=== PATIENT | male | born 1985 | race Caucasian/White ===

== ENCOUNTER 2022-08-04 14:12 | Emergency (ER) | payer MEDICAID, SELFPAY ==
[2022-08-04] VITALS (10 sets, daily range): BP systolic 127–143; BP diastolic 49–89; PULSE 75–103; RESP 10–26; O2SAT 92–100; BMI 25.0
--- NOTE | ~2022-08-04 | XR_ITS ---
EXAMINATION: XR CHEST CLINICAL INFORMATION: Cough COMPARISON: None available. TECHNIQUE: Frontal view of the chest was obtained. FINDINGS: There may be a small area of atelectasis present at the left lung base. There is mild biconvex thoracolumbar scoliosis. Otherwise, no abnormality is noted involving the heart, lungs, mediastinum, bony thorax or soft tissues. XR/XR chest 1V IMPRESSION: Question of small area of infiltrate or atelectasis left lung base.
--- NOTE | 2022-08-04 14:31 | ED_ITS ---
HPI - Overdose General Chief Complaint: Overdose Stated Complaint: OD,NARCAN GIVEN W/GOOD RESULT PER EMS Time Seen by Provider: 08/04/22 14:24 Source: EMS Mode of arrival: EMS History of Present Illness HPI Narrative: This is a 37 years old male brought in by ambulance after heroin overdose, he received the multiple dozen Narcan and BVM ventilation pre-hospital, his right awake alert diaphoretic he denies any SI and HI MD complaint: accidental overdose Onset (ago): hour(s) (2) Context: Intentional Overdose: drug/ETOH problems Context: Accidental Overdose: wanted to get high Treatments Prior to Arrival: oxygen and narcan Related Data Allergies Allergy/AdvReac Type Severity Reaction Status Date / Time No Known Allergies Allergy Verified 08/04/22 14:25 Review of Systems Constitutional: Constitutional: Reports no additional constitutional complain ts Cardiovascular: Cardiovascular: Reports no additional cardiovascular complaints Musculoskeletal: Musculoskeletal: Reports no additional musculoskeletal complaints Psychiatric: Psychiatric: Denies depression PMFSH Past Medical History PMFSH Narrative: substance abuse Social History Social History Alcohol intake: current Smoked in Last 30 Days: No Substance Use Type: Heroin and IV Drugs Advance Directives: No Advance Directives Information Provided: No Physical Exam Vital Signs: Vital Signs: Last Vital Signs Pulse 75 08/04/22 15:42 Resp 16 08/04/22 15:42 BP 127/49 L 08/04/22 15:42 Pulse Ox 100 08/04/22 15:42 O2 Del Method High Flow Nasal C annula 08/04/22 15:42 O2 Flow Rate 35 08/04/22 15:42 Oxygen Flow Rate 2 08/04/22 14:16 BMI result Body Mass Index 25.0 Const: Other: awake and alert General: cooperative Nutritional Appearance: well nourished HEENT: Head: Yes normal to inspection General nose exam: Normal external nose present Face and sinus: Yes normal facial exam Mouth: Normal oral and palatal mucosa present Throat: Yes posterior oropharynx normal Neck: Neck: Yes normal visual inspection Thyroid: Thyroid normal Chest: Chest palpation & inspection: normal inspection of the chest Resp: Effort & Inspection: normal respiratory effort Cardio: Jugular venous distension: no JVD Rate: regular rate Rhythm: regular rhythm GI: Inspection: Yes normal to inspection Palpation (GI): Soft to palpation, not firm and nontender Auscultation: normal bowel sounds Skin: General skin exam: no rashes or lesions noted and elasticity normal Lesions: no lesions Rashes: no rashes Course Reevaluation(s) Reevaluation #1: pt was placed on supplement 02 ,will need to be observed for few hours,will be signed out to dr Ag,I will be off shift in 10 minutes Time: 15:51 Reevaluation #2: signed off to Dr Ag Time: 16:18 Medications Administered Discontinued Medications Generic Name Dose Route Start Last Admin Trade Name Sven PRN Reason Stop Dose Admin Sodium Chloride 1,000 mls @ 999 mls/hr 08/04/22 14:30 08/04/22 15:41 Ns IVCONT 08/04/22 15:30 Infused .Q1H1M ANDREW Infusion Naloxone HCl 1 mg 08/04/22 15:28 08/04/22 15:32 Naloxone Hcl 2 Mg/2 Ml Syringe IVPUSH 08/04/22 15:29 1 mg ONCE ONE Administration Medical Decision Making Medical Decision Making [facility] Narrative: Patient presented with an overdose of opioid he was given Narcan in the field a BVM ventilation, he arrived lethargic by his the arousable was placed on supplemental oxygen end-tidal CO2, we will obtain chest x-ray labs will need observation for few hours Differential Diagnosis Differential Diagnoses: The differential diagnosis associated with the presentation includes Hyperventilation form opiates/aspiration pneumonitis Lab Data [facility] Lab Attestation statement: I reviewed the patient's lab results. 08/04/22 14:39 08/04/22 14:39 Labs: Lab Results 08/04/22 08/04/22 Range/Units 14:39 14:39 WBC 8.6 (4.8-10.8) X10*3/uL RBC 4.80 (4.60-5.80) X10*6/uL Hgb 14.5 (14.0-18.0) g/dl Hct 43.0 (42.0-52.0) % MCV 89.6 (80.0-98.0) fL MCH 30.2 (27.0-33.0) pg MCHC 33.7 (31.0-36.0) g/dl RDW 14.4 (11.0-16.0) % Plt Count 239 (160-400) X10*3/uL MPV 9.9 (9.4-12.4) fL Immature Gran % (Auto) 0.4 (0.0-0.4) % Neut % (Auto) 74.9 H (45-73) % Lymph % (Auto) 16.1 L (20-40) % [place] % (Auto) 6.0 (2-11) % Eos % (Auto) 1.9 (0-4) % Baso % (Auto) 0.7 (0-2) % Lymph # (Auto) 1.4 (1.2-4.9) X10*3/uL [place] # (Auto) 0.5 (0.1-1.2) X10*3/uL Eos # (Auto) 0.2 (0.0-0.4) X10*3/uL Baso # (Auto) 0.1 (0.0-0.2) X10*3/uL Abs Immat Gran (auto) 0.03 (0.00-0.03) X10*3/uL Absolute Neuts (auto) 6.4 (2.0-8.3) x10*3/uL Absolute Nucleated RBC 0.000 (0.0-0.012) X10*3/uL Nucleated RBC % (auto) 0.0 (0.0-0.2) /100WBC Troponin I High Sens 9.3 (<3.5-35.0) ng/L Independent Interpretation I performed an independent interpretation of an: Plain X-Ray Interpretation: ? infiltrate Radiology Impression Discussion of test interpretation with radiology: I have reviewed the radiologist's reading. Radiologist Impression: CLINICAL INFORMATION: Cough COMPARISON: None available. TECHNIQUE: Frontal view of the chest was obtained. FINDINGS: There may be a small area of atelectasis present at the left lung base. There is mild biconvex thoracolumbar scoliosis. Otherwise, no abnormality is noted involving the heart, lungs, mediastinum, bony thorax or soft tissues. XR/XR chest 1V IMPRESSION: Question of small area of infiltrate or atelectasis left lung base. ? Dictated By: Noel Mccallum MD Signed By: <Electronically signed by Noel Mccallum MD in OV> 08/04/22 1536 DD/ 1450 TD/TT:? Heel Breaster: SS Social Determinants Patient?s care significantly limited by Social Determinants of Health including: Other Social Determinant of Health substance abuse Discharge Plan Discharge Clinical Impression: Drug overdose Patient Disposition: Still a Patient
[2022-08-04] MEDS: 0.9 % Sodium Chloride 1,000 ML 999 ML IVCONT (14:38)
[2022-08-04 14:44] LABS: Basophils Absolute Auto 0.1 X10*3/uL (0.0-0.2); Basophils Percent Auto 0.7 % (0-2); Eosinophils Absolute Auto 0.2 X10*3/uL (0.0-0.4); Eosinophils Percent Auto 1.9 % (0-4); Hemoglobin 14.5 g/dl (14.0-18.0); Imm Gran Abs Auto 0.03 X10*3/uL (0.00-0.03); Imm Gran Pct Auto 0.4 % (0.0-0.4); Lymphocytes Absolute Auto 1.4 X10*3/uL (1.2-4.9); Lymphocytes Percent Auto 16.1 % (20-40); MANUAL DIFF FLAG NO; Mean Corpuscular HGB Conc 33.7 g/dl (31.0-36.0); Mean Corpuscular Hemoglobin 30.2 pg (27.0-33.0); Mean Corpuscular Volume 89.6 fL (80.0-98.0); Mean Platelet Volume 9.9 fL (9.4-12.4); Monocytes Absolute Auto 0.5 X10*3/uL (0.1-1.2); Neutrophils Absolute Auto 6.4 x10*3/uL (2.0-8.3); Neutrophils Percent Auto 74.9 % (45-73); Platelet Count 239 X10*3/uL (160-400); Red Cell Distribution Width 14.4 % (11.0-16.0); White Blood Count 8.6 X10*3/uL (4.8-10.8)
--- NOTE | 2022-08-04 14:56 | PC.NURSE ---
Patient changed over, responsive to verbal stimuli. Placed on monitor, labs sent, O2 applied. IV placed.
--- NOTE | 2022-08-04 15:12 | PC.NURSE ---
Dr. De Anda requesting pt be placed on hi-flow NC, YAJAIRA Pearce called respiratory who will be coming down
[2022-08-04 15:23] LABS: Troponin-I High Sensitivity 9.3 ng/L (<3.5-35.0)
[2022-08-04] MEDS: Naloxone HCl 2 MG/2 ML SYRINGE 1 MG IVPUSH (15:32)
--- NOTE | 2022-08-04 15:35 | PC.NURSE ---
1mg narcan given per order. 02 saturation with improvement sating 100% on highflow 35l at 35%
--- NOTE | 2022-08-04 16:44 | PC.NURSE ---
Alert and arousable. Voided into urinal. No complaints of pain, stating feeling nauseous with a mild headache.
[2022-08-04 16:55] LABS: Alanine Aminotransferase 47 U/L (0-40); Albumin Level 4.6 g/dL (3.5-5.0); Alkaline Phosphatase 62 U/L (39-117); Anion Gap 15 (12-20); Aspartate Amino Transferase 50 U/L (5-37); Bilirubin Total 0.5 mg/dL (0.0-1.0); Blood Urea Nitrogen 22 mg/dL (9-16); Calcium 9.1 mg/dL (8.4-10.2); Carbon Dioxide 25 mmol/L (22-29); Chloride 102 mmol/L (96-108); Creatinine Clr Calc Pharmacy 120.9; Estimated Glomerular Filt Rate > 60; Glucose Random 90 mg/dL (60-115); Potassium 4.1 mmol/L (3.3-5.1); Sodium 138 mmol/L (135-145)
--- NOTE | 2022-08-04 17:01 | PC.NURSE ---
pt switched over to oxymask, satting well at 99%
--- NOTE | 2022-08-04 19:10 | PC.NURSE ---
pt continues to take oxymask on and off every few minutes. when off the O2, the patient drops to the low 80s, but quickly recovers once mask is back on
[2022-08-04] MEDS: Naloxone HCl 0.4 MG/ML VIAL 0.2 MG IVPUSH (19:56)
[2022-08-04] MEDS: 0.9 % Sodium Chloride 1,000 ML 999 ML IV (19:58)
--- NOTE | 2022-08-04 20:07 | PC.NURSE ---
administered narcan per MAY. Pt took O2 mask off, satting well 96% on room air at this time, girlfriend at bedside. Pt states to this rn I hate that shit, I don't need fucking narcan . This RN educated patient on need for narcan due to decreased respirations. Pt also educated on the now positive effect of the narcan.
[2022-08-04 20:13] LABS: Troponin-I High Sensitivity 68.2 ng/L (<3.5-35.0)
--- NOTE | 2022-08-04 20:16 | ECG_ITS ---
Test Reason : tachycardia Blood Pressure : / mmHG Vent. Rate : 088 BPM Atrial Rate : 088 BPM P-R Int : 142 ms QRS Dur : 094 ms QT Int : 348 ms P-R-T Axes : 061 010 040 degrees QTc Int : 421 ms Normal sinus rhythm Premature ventricular complexes Borderline ECG No previous ECGs available Referred By: Mariza Ag Electronically Signed By:CHILANGO SCHROEDER
[2022-08-04 20:32] LABS: Ethanol < 10 mg/dL
--- NOTE | 2022-08-04 20:35 | PC.NURSE ---
pt continues to sat well on room air, 95%
[2022-08-04 22:34] LABS: Amphetamine Screen Urine Not Detected (Not Detect); Barbiturates, Urine Not Detected (Not Detect); Benzodiazepines Screen Urine Not Detected (Not Detect); Cannabinoid Screen Urine Not Detected (Not Detect); Cocaine Screen Urine POSITIVE (Not Detect); Fentanyl, urine POSITIVE (Not Detect); Opiate Screen Urine Not Detected (Not Detect); Phencyclidine Screen Urine Not Detected (Not Detect)
--- NOTE | 2022-08-04 23:22 | PC.NURSE ---
late entry: pt requesting to leave, this RN alerted MD as such, MD did not go see patient at first. pt took his O2 and monitor off. This RN spoke with patient and requested patient wait until being seen by MD to leave. Pt continuing to request to leave, YAJAIRA Reynaga removed both IVs. then spoke with patient. This RN discharged pt with LIANA papers, pt was walked to [facility] to receive his belongings
== END 2022-08-04 22:30 | disposition left against medical advice (07) ==
PROVIDERS: Student in an Organized Health Care Education/Training Program; Emergency Provider Emergency Medicine
DX: T40.1X1A Poisoning by heroin, accidental (unintentional), initial encounter (principal); R00.0 Tachycardia, unspecified; R05.9 Cough, unspecified; F11.19 Opioid abuse with unspecified opioid-induced disorder; Y92.9 Unspecified place or not applicable; Z71.51 Drug abuse counseling and surveillance of drug abuser; Z79.899 Other long term (current) drug therapy
CPT/HCPCS: 36415; 71045; 80053; 80307; 82550; 84484; 85025; 93005; 96361; 96374; 96375; 96376; 99285

== ENCOUNTER 2022-11-05 03:24 | Emergency (ER) | payer MEDICAID, SELFPAY ==
[2022-11-05 03:38] VITALS: BP 130/70; BP 154/68; PULSE 65; PULSE 89; RESP 20; TEMP 36.8; O2SAT 93; O2SAT 98; BMI 29.3
[2022-11-05 03:41] VITALS: BP 154/68; PULSE 89; RESP 20; TEMP 36.8; O2SAT 95
--- NOTE | 2022-11-05 03:42 | PC.NURSE ---
Security called and assess pt for any narcotic. pt cleared by security (will)
--- NOTE | 2022-11-05 04:08 | ED_ITS ---
HPI - Psych General Chief Complaint: Overdose Stated Complaint: Substance Use Time Seen by Provider: 11/05/22 03:52 Source: patient Mode of arrival: EMS Limitations: no limitations History of Present Illness HPI Narrative: just completed detox and in IOP program does not want detox due for sublocaide injection in 2 days. He was referred to come here by police but he doesn't feel he wants detox or help he is eating a sandwhich - police encouraged him to come. he has no complaints. he wants to get back to [facility]. complaint: substance abuse Onset (ago): month(s) Duration: intermittent History of same: Yes Relieving factors: none Exacerbating factors: drug use Context: recent drug abuse Associated psychiatric symptoms: none Associated symptoms: denies other symptoms Treatments prior to arrival: none Related Data Allergies Allergy/AdvReac Type Severity Reaction Status Date / Time No Known Allergies Allergy Verified 08/04/22 14:25 Review of Systems Review of Systems: Constitutional : No Fever, No Chills, Cardiovascular : No Chest Pain, No SOB Respiratory : No Dyspnea Gastrointestinal : No abdominal pain Musculoskeletal : No Joint Swelling Skin : No rash, no skin laceration Neuro : No Weakness, No Numbness Psych : No SI/HI PMFSH Past Medical History Attestation statement: The following information was validated with the patient. Medical History Polysubstance abuse Social History Social History Alcohol intake: current Alcohol intake frequency: does not drink Smoked in Last 30 Days: Yes Use of substances other than those prescribed or required for medical reasons: Yes Substance Use Type: Crack/Cocaine and Heroin Substance Use Frequency: Chronic Longstanding Advance Directives: No Advance Directives Information Provided: Yes Physical Exam Vital Signs: Vital Signs: Last Vital Signs Temp 98.3 F 11/05/22 03:41 Pulse 77 11/05/22 06:04 Resp 20 11/05/22 06:04 BP 147/71 H 11/05/22 06:04 Pulse Ox 94 11/05/22 06:04 O2 Del Method Room Air 11/05/22 06:04 BMI result Body Mass Index 29.3 Appearance: Alert. Oriented X3. No acute distress. eating a ham sandwhich Eyes: Pupils equal, round and reactive to light. ENT: Pharynx normal. Neck: Normal inspection. Neck supple. CVS: Normal heart rate and rhythm. Pulses normal. Respiratory: No respiratory distress. Breath sounds normal. Abdomen: Soft and non-tender. Skin: Skin warm and dry. Normal skin color. Normal skin turgor. Extremities: No lower extremity edema. Neuro: Oriented X 3. No motor deficit. No sensory deficit. Course Course Course Narrative: no narcan needed for 3 hours he wants to leave stable for DC narcan to go home given Medical Decision Making Medical Decision Making [facility] Narrative: 37 yo male with substance abuse here with c/o abuse of drugs but does not want detox or services - he did not require narcan but will take some home. he needs to find a ride home to [facility] in AM. He declines any addiction services in our ED. Differential Diagnosis Differential Diagnoses: The differential diagnosis associated with the presentation includes substance abuse, overdose Admission/Observation Consideration of admission/observation: Escalation of care including admission/observation considered attempted to get him to stay for observation and CARE team but he declined Independent Historian Clinical information obtained from an independent historian. History obtained from or confirmed by: EMS External Record Review External record reviewed: Inpatient record Prescription Management I considered prescription management with: Other (narcan to go) Social Determinants Patient?s care significantly limited by Social Determinants of Health including: Problems related to primary support group and Other Social Determinant of Health Discharge Plan Discharge Clinical Impression: Opiate abuse, episodic Patient Disposition: Home, Self-Care Instructions: Opioid Use Disorder (ED) Additional Instructions: carry narcan with you if you need help we are here to help with detox and other services - reach out
--- NOTE | 2022-11-05 04:58 | PC.NURSE ---
pt given a sandwich and drink, pt resting in bed with no sign of distress me.
[2022-11-05 06:04] VITALS: BP 147/71; PULSE 77; RESP 20; O2SAT 94
[2022-11-05] MEDS: Naloxone HCl Nasal TAKE HOME 4 MG SPRAY 8 MG NOSTRILALT (06:40)
== END 2022-11-05 06:38 | disposition home or self-care (01) ==
PROVIDERS: Emergency Provider Emergency Medicine
DX: T40.1X1A Poisoning by heroin, accidental (unintentional), initial encounter (principal); Y92.9 Unspecified place or not applicable; Z71.51 Drug abuse counseling and surveillance of drug abuser
CPT/HCPCS: 99284

== ENCOUNTER 2022-11-21 14:48 | Emergency (ER) | payer MEDICAID, SELFPAY ==
--- NOTE | ~2022-11-21 | CT_ITS ---
EXAMINATION: CT HEAD WITHOUT CONTRAST CLINICAL INFORMATION: Possible first seizure COMPARISON: None available. TECHNIQUE: Contiguous axial imaging was performed from the skull base to vertex without intravenous administration of contrast. This CT examination was performed using dose optimization techniques as appropriate, variously including the following: *Automated exposure control *Adjustment of mA and/or kV according to patient size (this includes techniques or standardized protocols for targeted exams where dose is matched to indication/reason for exam; i.e. extremities or head) *Use of iterative reconstruction technique DLP: 668 mGy-cm FINDINGS: The ventricles and sulci are normal in size and configuration. No acute hemorrhage, mass effect or shift is evident. Soliman-white differentiation is maintained. In the posterior fossa, the brainstem, cerebellum and fourth ventricle image normally. The orbits and calvarium are intact. The paranasal sinuses and mastoid air cells are well pneumatized and clear. CT/CT head/brain wo IV con IMPRESSION: 1. Unremarkable noncontrast brain CT. No acute hemorrhage, mass effect or shift.
--- NOTE | 2022-11-21 14:58 | ECG_ITS ---
Test Reason : SEIZURE Blood Pressure : / mmHG Vent. Rate : 110 BPM Atrial Rate : 110 BPM P-R Int : 166 ms QRS Dur : 100 ms QT Int : 376 ms P-R-T Axes : 066 -18 075 degrees QTc Int : 508 ms Sinus tachycardia with Fusion complexes Septal infarct , age undetermined Abnormal ECG When compared with ECG of 04-AUG-2022 20:20, Fusion complexes are now Present Premature ventricular complexes are no longer Present Septal infarct is now Present Nonspecific T wave abnormality now evident in Lateral leads QT has lengthened Referred By: Layla Schafer Electronically Signed By:MI ARCHIBALD
[2022-11-21 14:59] VITALS: BP 131/80; BP 148/86; PULSE 118; PULSE 130; RESP 18; TEMP 36.7; O2SAT 98; BMI 27.9
--- NOTE | 2022-11-21 14:59 | ED_ITS ---
HPI - Overdose General Chief Complaint: Seizure Stated Complaint: OD,FENTANYL/COCAINE,SZ PER EMS Time Seen by Provider: 11/21/22 14:52 Source: patient Mode of arrival: ambulatory Limitations: no limitations History of Present Illness HPI Narrative: Patient comes emergency room complaining of possible overdose and seizure. According to the patient, he admits that he used cocaine and fentanyl IV. Shortly after his 2nd IV injection of the day, patient felt very lightheaded, fell to the ground, states that he believes he passed out but he is not sure. Also, the patient's girlfriend heard that the patient fell to the ground, ran to the bathroom and found him possibly seizing. Patient does not have any history of seizures. Patient's called 911 and patient came to the emergency room. Narcan was not given. Patient states that this time he feels well. Per EMS, patient was found diaphoretic, patient denies chest pain or shortness of breath. Related Data Allergies Allergy/AdvReac Type Severity Reaction Status Date / Time No Known Allergies Allergy Verified 08/04/22 14:25 Review of Systems Review of Systems: Constitutional : No Weight loss, No Fever, No Chills, No Night Sweats, No Fatigue, No Malaise ENT/Mouth : No Hearing loss, No Ear Pain, No Nasal Congestion, No Sinus Pain, No Hoarseness, No sore throat, No Rhinorrhea, No Swallowing Difficulty Eyes: No Eye Pain, No Swelling, No Redness, No Foreign Body, No Discharge, No Vision Changes Cardiovascular : No Chest Pain, No SOB, No Dyspnea on Exertion, No Orthopnea, No Edema, No Palpitations Respiratory : No Cough, No Sputum, No Wheezing, No Smoke Exposure, No Dyspnea Gastrointestinal : No Nausea, No Vomiting, No Diarrhea, No Constipation, No abdominal Pain, No Hematochezia, No Melena Genitourinary : no irregular bleeding, No Dysuria, No Urinary Frequency, No Hematuria, No Urinary Incontinence, No Urgency, No Flank Pain, No Urinary Flow Changes, No Hesitancy Musculoskeletal : No joint pain, No Myalgias, No Joint Swelling Skin : No Skin Lesions, No rash Neuro : No Weakness, No Numbness, No Paresthesias, No Loss of Consciousness, No Dizziness, No Headache, possible seizure Psych : No Anxiety/Panic, No Depression, No SI/HI/AH/VH, No Social Issues, Heme/Lymph: No Bruising, No Bleeding,No Lymphadenopathy Endocrine : No Polyuria, No Polydipsia, No Temperature Intolerance [facility] Past Medical History Medical History Polysubstance abuse Social History Social History Alcohol intake: current Alcohol intake frequency: does not drink Substance Use Type: Crack/Cocaine and Heroin Advance Directives: No Advance Directives Information Provided: No Physical Exam Vital Signs: Vital Signs: Last Vital Signs Temp 98.8 F 11/21/22 16:32 Pulse 98 11/21/22 16:32 Resp 20 11/21/22 16:32 BP 139/79 11/21/22 16:32 Pulse Ox 95 11/21/22 16:32 O2 Del Method Room Air 11/21/22 16:32 BMI result Body Mass Index 27.9 Const: Other: Appearance: Alert. Oriented X3. No acute distress. Eyes: Pupils equal, round and reactive to light. ENT: Pharynx normal. Neck: Normal inspection. Neck supple. No lymph nodes noted. No crepitus CVS: Normal heart rate and rhythm. Pulses normal. Normal S1 and S2 Respiratory: No respiratory distress. Breath sounds normal. No Wheezing. No rales Abdomen: Soft and nontender. No rigidity. No distention. Skin: Skin warm diaphoretic. Normal skin color. Normal skin turgor. Extremities: No lower extremity edema. No Lacerations. No Rash Neuro: Oriented X 3. No motor deficit. No sensory deficit. Moving all extremities. No slurred speech. CN 2 through 12 grossly intact Psych: calm, cooperative, normal affect Course Course Course Narrative: -all of patient's labs pending, head CT pending. Medical Decision Making Medical Decision Making MDM Narrative: -my interpretation of labs: Normal white blood cell count, lactic acid normal, chemistry normal. Some labs, it does not seem that patient had seizure. Additionally, patient states that he remembers being awake most of the time and after he had this tonic clonic seizure like activity, patient got up and started walking, patient was never postictal. -my interpretation head CT: No intracranial bleed -CT scan report: Unremarkable, no acute hemorrhage or mass effect or shift -patient refused care/Sude eval -patient was given home Narcan prior to discharge -at the time of discharge, patient feeling back to baseline, normal vitals, n ormal gait. Here in the emergency room, patient did not have any seizure-like activities. Differential Diagnosis Differential Diagnoses: The differential diagnosis associated with the presentation includes (Seizure, contusion, concussion, overdose) Admission/Observation Consideration of admission/observation: Escalation of care including admission/observation considered (Initially, admission was considered patient patient's history and presentation.) Lab Data MDM Lab Attestation statement: I reviewed the patient's lab results. 11/21/22 15:18 11/21/22 15:18 Labs: Lab Results 11/21/22 11/21/22 11/21/22 Range/Units 15:17 15:17 15:17 WBC (4.8-10.8) X10*3/uL RBC (4.60-5.80) X10*6/uL Hgb (14.0-18.0) g/dl Hct (42.0-52.0) % MCV (80.0-98.0) fL MCH (27.0-33.0) pg MCHC (31.0-36.0) g/dl RDW (11.0-16.0) % Plt Count (160-400) X10*3/uL MPV (9.4-12.4) fL Immature Gran % (Auto) (0.0-0.4) % Neut % (Auto) (45-73) % Lymph % (Auto) (20-40) % [place] % (Auto) (2-11) % Eos % (Auto) (0-4) % Baso % (Auto) (0-2) % Lymph # (Auto) (1.2-4.9) X10*3/uL [place] # (Auto) (0.1-1.2) X10*3/uL Eos # (Auto) (0.0-0.4) X10*3/uL Baso # (Auto) (0.0-0.2) X10*3/uL Abs Immat Gran (auto) (0.00-0.03) X10*3/uL Absolute Neuts (auto) (2.0-8.3) x10*3/uL Absolute Nucleated RBC (0.0-0.012) X10*3/uL Nucleated RBC % (auto) (0.0-0.2) /100WBC PT 13.0 (11.1-13.3) SEC INR 1.1 (0.9-1.1) Sodium (135-145) mmol/L Potassium (3.3-5.1) mmol/L Chloride (96-108) mmol/L Carbon Dioxide (22-29) mmol/L Anion Gap (12-20) BUN (9-16) mg/dL Creatinine (0.5-1.4) mg/dL Estim Creat Clear Calc Estimated GFR Random Glucose (60-115) mg/dL Lactic Acid 1.5 (0.5-2.0) mmol/L Calcium (8.4-10.2) mg/dL Total Bilirubin (0.0-1.0) mg/dL Direct Bilirubin (0.0-0.5) mg/dL AST (5-37) U/L ALT (0-40) U/L Alkaline Phosphatase (39-117) U/L Troponin I High Sens (<3.5-35.0) ng/L Total Protein (6.5-8.0) g/dL Albumin (3.5-5.0) g/dL Ethyl Alcohol < 10 mg/dL 11/21/22 11/21/22 11/21/22 Range/Units 15:18 15:18 15:18 WBC 6.4 (4.8-10.8) X10*3/uL RBC 4.74 (4.60-5.80) X10*6/uL Hgb 14.2 (14.0-18.0) g/dl Hct 41.6 L (42.0-52.0) % MCV 87.8 (80.0-98.0) fL MCH 30.0 (27.0-33.0) pg MCHC 34.1 (31.0-36.0) g/dl RDW 13.9 (11.0-16.0) % Plt Count 249 (160-400) X10*3/uL MPV 9.4 (9.4-12.4) fL Immature Gran % (Auto) 0.2 (0.0-0.4) % Neut % (Auto) 73.2 H (45-73) % Lymph % (Auto) 15.6 L (20-40) % [place] % (Auto) 8.2 (2-11) % Eos % (Auto) 2.2 (0-4) % Baso % (Auto) 0.6 (0-2) % Lymph # (Auto) 1.0 L (1.2-4.9) X10*3/uL [place] # (Auto) 0.5 (0.1-1.2) X10*3/uL Eos # (Auto) 0.1 (0.0-0.4) X10*3/uL Baso # (Auto) 0.0 (0.0-0.2) X10*3/uL Abs Immat Gran (auto) 0.01 (0.00-0.03) X10*3/uL Absolute Neuts (auto) 4.7 (2.0-8.3) x10*3/uL Absolute Nucleated RBC 0.000 (0.0-0.012) X10*3/uL Nucleated RBC % (auto) 0.0 (0.0-0.2) /100WBC PT (11.1-13.3) SEC INR (0.9-1.1) Sodium 137 (135-145) mmol/L Potassium 3.4 (3.3-5.1) mmol/L Chloride 103 (96-108) mmol/L Carbon Dioxide 25 (22-29) mmol/L Anion Gap 12 (12-20) BUN 13 (9-16) mg/dL Creatinine 0.92 (0.5-1.4) mg/dL Estim Creat Clear Calc 125.4 Estimated GFR > 60 Random Glucose 112 (60-115) mg/dL Lactic Acid (0.5-2.0) mmol/L Calcium 9.5 (8.4-10.2) mg/dL Total Bilirubin 0.5 (0.0-1.0) mg/dL Direct Bilirubin 0.2 (0.0-0.5) mg/dL AST 21 (5-37) U/L ALT 16 (0-40) U/L Alkaline Phosphatase 88 (39-117) U/L Troponin I High Sens < 2.7 D (<3.5-35.0) ng/L Total Protein 7.5 (6.5-8.0) g/dL Albumin 4.1 (3.5-5.0) g/dL Ethyl Alcohol mg/dL Independent Interpretation I performed an independent interpretation of an: CT Scan Radiology Impression Discussion of test interpretation with radiology: I have reviewed the rad iologist's reading. Radiologist Impression: FINDINGS: The ventricles and sulci are normal in size and configuration. No acute hemorrhage, mass effect or shift is evident. Soliman-white differentiation is maintained. In the posterior fossa, the brainstem, cerebellum and fourth ventricle image normally. The orbits and calvarium are intact. The paranasal sinuses and mastoid air cells are well pneumatized and clear. ? CT/CT head/brain wo IV con IMPRESSION: ? 1. Unremarkable noncontrast brain CT. No acute hemorrhage, mass effect or shift. Critical Care Time Critical Care Time Critical Care Time: Yes Total Critical Care Time: 60 Attestation: I have personally provided critical care time. Time includes review of lab data, radiology results, discussion with consultants, and monitoring for potential decompensation. Intervention performed as documented. Discharge Plan Discharge Clinical Impression: Overdose Patient Disposition: Home, Self-Care Instructions: Adult Overdose (ED) Additional Instructions: Please follow-up with your primary care physician tomorrow. If you have any worsening or new symptoms, please return to the emergency room or call 911
[2022-11-21 15:26] LABS: MANUAL DIFF FLAG NO
[2022-11-21 15:29] LABS: Basophils Percent Auto 0.6 % (0-2); Eosinophils Absolute Auto 0.1 X10*3/uL (0.0-0.4); Eosinophils Percent Auto 2.2 % (0-4); Hematocrit 41.6 % (42.0-52.0); Hemoglobin 14.2 g/dl (14.0-18.0); Imm Gran Abs Auto 0.01 X10*3/uL (0.00-0.03); Imm Gran Pct Auto 0.2 % (0.0-0.4); Lymphocytes Percent Auto 15.6 % (20-40); Mean Corpuscular HGB Conc 34.1 g/dl (31.0-36.0); Mean Corpuscular Volume 87.8 fL (80.0-98.0); Mean Platelet Volume 9.4 fL (9.4-12.4); Monocytes Absolute Auto 0.5 X10*3/uL (0.1-1.2); Monocytes Percent Auto 8.2 % (2-11); Neutrophils Absolute Auto 4.7 x10*3/uL (2.0-8.3); Neutrophils Percent Auto 73.2 % (45-73); Platelet Count 249 X10*3/uL (160-400); Red Blood Count 4.74 X10*6/uL (4.60-5.80); Red Cell Distribution Width 13.9 % (11.0-16.0); White Blood Count 6.4 X10*3/uL (4.8-10.8)
[2022-11-21 15:37] LABS: INTERNATIONAL NORM RATIO 1.1 (0.9-1.1)
[2022-11-21 15:38] LABS: Lactic Acid 1.5 mmol/L (0.5-2.0)
[2022-11-21 15:41] LABS: Ethanol < 10 mg/dL
[2022-11-21 15:42] LABS: Alanine Aminotransferase 16 U/L (0-40); Albumin Level 4.1 g/dL (3.5-5.0); Alkaline Phosphatase 88 U/L (39-117); Anion Gap 12 (12-20); Aspartate Amino Transferase 21 U/L (5-37); Bilirubin Direct 0.2 mg/dL (0.0-0.5); Bilirubin Total 0.5 mg/dL (0.0-1.0); Blood Urea Nitrogen 13 mg/dL (9-16); Calcium 9.5 mg/dL (8.4-10.2); Carbon Dioxide 25 mmol/L (22-29); Chloride 103 mmol/L (96-108); Creatinine Clr Calc Pharmacy 125.4; Estimated Glomerular Filt Rate > 60; Glucose Random 112 mg/dL (60-115); Potassium 3.4 mmol/L (3.3-5.1); Sodium 137 mmol/L (135-145); Total Protein 7.5 g/dL (6.5-8.0)
[2022-11-21 15:49] LABS: Troponin-I High Sensitivity < 2.7 ng/L (<3.5-35.0)
[2022-11-21 16:32] VITALS: BP 139/79; PULSE 98; RESP 20; TEMP 37.1; O2SAT 95
[2022-11-21 17:54] VITALS: BP 129/72; PULSE 90; RESP 12; TEMP 36.7; O2SAT 96
[2022-11-21] MEDS: Naloxone HCl Nasal TAKE HOME 4 MG SPRAY 8 MG NOSTRILALT (17:56)
== END 2022-11-21 18:00 | disposition home or self-care (01) ==
PROVIDERS: Emergency Provider Emergency Medicine
DX: T40.5X1A Poisoning by cocaine, accidental (unintentional), initial encounter (principal); T40.411A Poisoning by fentanyl or fentanyl analogs, accidental (unintentional), initial encounter; F19.10 Other psychoactive substance abuse, uncomplicated; Y92.012 Bathroom of single-family (private) house as the place of occurrence of the external cause
CPT/HCPCS: 36415; 70450; 80048; 80076; 80307; 83605; 84484; 85025; 85610; 93005; 99284

== ENCOUNTER 2023-01-10 12:23 | Emergency (ER) | payer MEDICAID, SELFPAY ==
[2023-01-10 12:37] VITALS: BP 142/86; PULSE 82; O2SAT 96
[2023-01-10 12:47] VITALS: BP 115/50; PULSE 79; RESP 18; TEMP 37.1; O2SAT 95; BMI 27.9
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
== END 2023-01-10 13:12 | disposition home or self-care (01) ==
PROVIDERS: Emergency Provider Student in an Organized Health Care Education/Training Program
DX: F19.10 Other psychoactive substance abuse, uncomplicated (principal)
CPT/HCPCS: 99282

== ENCOUNTER 2023-03-18 00:24 | Inpatient (IN) | payer MEDICAID, SELFPAY ==
[2023-03-18] VITALS (10 sets, daily range): BP systolic 99–143; BP diastolic 51–97; PULSE 78–110; RESP 16–19; TEMP 36.2–37; O2SAT 95–98; BMI 27.9
--- NOTE | 2023-03-18 | ECG_ITS ---
Test Reason : CHECK QT Blood Pressure : / mmHG Vent. Rate : 072 BPM Atrial Rate : 072 BPM P-R Int : 138 ms QRS Dur : 090 ms QT Int : 408 ms P-R-T Axes : 061 000 050 degrees QTc Int : 446 ms Normal sinus rhythm Normal ECG When compared with ECG of 21-NOV-2022 15:06, Fusion complexes are no longer Present Vent. rate has decreased BY 38 BPM Criteria for Septal infarct are no longer Present QT has shortened Referred By: Danika Carmona Electronically Signed By:WILMAR RIBEIRO MD
--- NOTE | 2023-03-18 01:18 | ED_ITS ---
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 He has an extensive bleed to the left forearm with spurting of blood per EMS MD complaint: anxiety and other Onset (ago): hour(s) Duration: other (he denies SI to me) History of same: Yes Relieving factors: none Exacerbating factors: other Context: recent alcohol abuse Associated psychiatric symptoms: none Associated symptoms: denies other symptoms Treatments prior to arrival: placed on mental health hold If self harm: other (broken dish caused his L arm injury) Related Data Allergies Allergy/AdvReac Type Severity Reaction Status Date / Time No Known Allergies Allergy Verified 01/10/23 12:51 Review of Systems 2 Review of Systems: Constitutional : No Fever, No Chills, Cardiovascular : No Chest Pain, No SOB Respiratory : No Dyspnea Gastrointestinal : No abdominal pain Musculoskeletal : No Joint Swelling Skin : No rash, positive skin laceration Neuro : No Weakness, No Numbness Psych : No SI/HI all other systems reviewed and are negative PMFSH Past Medical History Medical History Polysubstance abuse Social History Social History Alcohol intake: current Alcohol intake frequency: a few times a week Alcohol type: hard liquor Smoked in Last 30 Days: Yes Use of substances other than those prescribed or required for medical reasons: Yes Substance Use Type: Heroin Advance Directives: No Advance Directives Information Provided: Yes Physical Exam 2 Vital Signs: Vital Signs: Last Vital Signs Temp 97.8 F 03/18/23 01:38 Pulse 98 03/18/23 01:38 Resp 17 03/18/23 03:10 BP 110/72 03/18/23 01:38 Pulse Ox 96 03/18/23 01:38 O2 Del Method Room Air 03/18/23 01:38 BMI result Body Mass Index 27.9 Appearance: Alert. Oriented X3. No acute distress. Eyes: Pupils equal, round and reactive to light. ENT: Pharynx normal. Neck: Normal inspection. Neck supple. CVS: Normal heart rate and rhythm. Pulses normal. Respiratory: No respiratory distress. Breath sounds normal. Abdomen: Soft and nontender. Skin: Skin warm and dry. Normal skin color. Normal skin turgor. Extremities: No lower extremity edema. L mid anterior forearm multiple lacerations noted some superficial some deeper there is one down to subq with arterial spurting bleeding noted mid forearm 6cm Neuro: Oriented X 3. No motor deficit. No sensory deficit. CN2-12 intact Course Course Course Narrative: Physician observation started at 2am Patient placed in physician observation because the patient needed more time for CARE team to assess the need for psych admission. At the time observation was started the patient's vitals were stable, patient is alert and oriented Neuro: nonfocal, CV RRR, Lungs clear Reevaluation(s) Reevaluation #1: VS stable, he did drop down 3 points but VS stable and no further bleeding Medications Administered Generic Name Dose Route Start Last Admin Trade Name Freq PRN Reason Stop Dose Admin Lorazepam 2 mg 03/18/23 01:52 03/18/23 02:10 Lorazepam 1 Mg Tablet PO 2 mg Q3H PRN Administration Alcohol Withdrawal Discontinued Medications Generic Name Dose Route Start Last Admin Trade Name Freq PRN Reason Stop Dose Admin Acetaminophen 650 mg 03/18/23 04:46 03/18/23 05:11 Acetaminophen 325 Mg Tablet PO 03/18/23 04:47 650 mg ONCE ONE Administration Ibuprofen 600 mg 03/18/23 04:46 03/18/23 05:11 Ibuprofen 600 Mg Tablet PO 03/18/23 04:47 600 mg ONCE ONE Administration Medical Decision Making Medical Decision Making MDM Narrative: 38 yo male with substance use who admits to drinking tonight but denies SI states he accidentally caused trauma to his arm from broken dish he states his jumped to conclusion - he has perfectly linear non jagged lacerations and unfortunately one is spurting with arterial hemorrhage that is hard to control he is distal NV intact. He had to have a tourniquet on to stop the bleeding initial time 8 min second time 10 min with placement of sutures done - used 4-0 nylon to control the arterial laceration 3 sutures placed. Will need labs and CARE team consult Differential Diagnosis Differential Diagnoses: The differential diagnosis associated with the presentation includes lacerations, SI, substance abuse Admission/Observation Consideration of admission/observation: Escalation of care including admission/observation considered Lab Data MDM Lab Attestation statement: I reviewed the patient's lab results. 03/18/23 05:37 03/18/23 01:37 Labs: Lab Results 03/18/23 03/18/23 03/18/23 Range/Units 01:37 01:50 05:37 WBC 6.8 6.6 (4.8-10.8) X10*3/uL RBC 4.52 L 4.14 L (4.60-5.80) X10*6/uL Hgb 12.6 L 11.5 L (14.0-18.0) g/dl Hct 36.4 L 33.6 L (42.0-52.0) % MCV 80.5 81.2 (80.0-98.0) fL MCH 27.9 27.8 (27.0-33.0) pg MCHC 34.6 34.2 (31.0-36.0) g/dl RDW 13.2 13.5 (11.0-16.0) % Plt Count 307 272 (160-400) X10*3/uL MPV 8.8 L 8.9 L (9.4-12.4) fL Immature Gran % (Auto) 0.3 (0.0-0.4) % Neut % (Auto) 65.7 (45-73) % Lymph % (Auto) 25.4 (20-40) % [place] % (Auto) 5.8 (2-11) % Eos % (Auto) 1.8 (0-4) % Baso % (Auto) 1.0 (0-2) % Lymph # (Auto) 1.7 (1.2-4.9) X10*3/uL [place] # (Auto) 0.4 (0.1-1.2) X10*3/uL Eos # (Auto) 0.1 (0.0-0.4) X10*3/uL Baso # (Auto) 0.1 (0.0-0.2) X10*3/uL Abs Immat Gran (auto) 0.02 (0.00-0.03) X10*3/uL Absolute Neuts (auto) 4.5 (2.0-8.3) x10*3/uL Absolute Nucleated RBC 0.000 0.000 (0.0-0.012) X10*3/uL Nucleated RBC % (auto) 0.0 0.0 (0.0-0.2) /100WBC Sodium 141 (135-145) mmol/L Potassium 3.8 (3.3-5.1) mmol/L Chloride 108 (96-108) mmol/L Carbon Dioxide 21 L (22-29) mmol/L Anion Gap 16 (12-20) BUN 17 H (9-16) mg/dL Creatinine 0.97 (0.5-1.4) mg/dL Estim Creat Clear Calc 118.9 Estimated GFR > 60 Random Glucose 85 (60-115) mg/dL Calcium 9.6 (8.4-10.2) mg/dL Magnesium 2.1 (1.6-2.6) mg/dL Total Bilirubin 0.4 (0.0-1.0) mg/dL Direct Bilirubin 0.1 (0.0-0.5) mg/dL AST 26 (5-37) U/L ALT 65 H (0-40) U/L Alkaline Phosphatase 121 H (39-117) U/L Total Protein 7.3 (6.5-8.0) g/dL Albumin 4.2 (3.5-5.0) g/dL Urine Opiates Screen Not Detected (Not Detect) Urine Fentanyl Screen POSITIVE H (Not Detect) Ur Barbiturates Screen Not Detected (Not Detect) Ur Phencyclidine Scrn Not Detected (Not Detect) Ur Amphetamines Screen Not Detected (Not Detect) U Benzodiazepines Scrn POSITIVE H (Not Detect) Urine Cocaine Screen POSITIVE H (Not Detect) U Marijuana (THC) Screen POSITIVE H (Not Detect) Ethyl Alcohol 90 mg/dL COVID-19 (NELY) Negative (Negative) COVID-19 Clin Com See Note Independent Historian Clinical information obtained from an independent historian. History obtained from or confirmed by: EMS External Record Review External record reviewed: Inpatient record Procedures Laceration Laceration 1: Site: upper extremity Side (If applicable): left Size (cm): 6 Description: linear Depth: simple, single layer (arterial bleed ) Local Anesthetic: lidocaine 1% Amount of anesthesia used (mL): 3 Pre-repair: wound explored and irrigated extensively Skin layer closed with: vicryl Size (cm): 4-0 Number of sutures: 3 Technique: simple, interrupted (running suture used to close overlying wound, 3 sutures used to control arterial bleed) and running Laceration 2: Site: upper extremity Side (If applicable): left Size (cm): 4 Description: linear Depth: simple, single layer Local Anesthetic: lidocaine 1% Amount of anesthesia used (mL): 2 Pre-repair: wound explored and irrigated extensively Skin layer closed with: nylon Size (cm): 4-0 Number of sutures: 4 Technique: simple, interrupted Critical Care Time Critical Care Time Critical Care Time: Yes Total Critical Care Time: 45 Attestation: bedside repeat assessments, recheck H/H, arterial bleed laceration repair. Discharge Plan Discharge Clinical Impression: Laceration of artery, ABLA (acute blood loss anemia) Forearm laceration Qualifiers: Encounter type: initial encounter Laterality: left Qualified Code(s): S51.812A - Laceration without foreign body of left forearm, initial encounter Patient Disposition: Still a Patient Instructions: Laceration (ED) Interventions: Ford-Suicide Risk Severity Scale Last Done: 03/18/23 01:31
[2023-03-18 01:44] LABS: Basophils Absolute Auto 0.1 X10*3/uL (0.0-0.2); Eosinophils Absolute Auto 0.1 X10*3/uL (0.0-0.4); Eosinophils Percent Auto 1.8 % (0-4); Hematocrit 36.4 % (42.0-52.0); Hemoglobin 12.6 g/dl (14.0-18.0); Imm Gran Abs Auto 0.02 X10*3/uL (0.00-0.03); Imm Gran Pct Auto 0.3 % (0.0-0.4); Lymphocytes Absolute Auto 1.7 X10*3/uL (1.2-4.9); Lymphocytes Percent Auto 25.4 % (20-40); MANUAL DIFF FLAG NO; Mean Corpuscular HGB Conc 34.6 g/dl (31.0-36.0); Mean Corpuscular Hemoglobin 27.9 pg (27.0-33.0); Mean Corpuscular Volume 80.5 fL (80.0-98.0); Mean Platelet Volume 8.8 fL (9.4-12.4); Monocytes Absolute Auto 0.4 X10*3/uL (0.1-1.2); Monocytes Percent Auto 5.8 % (2-11); Neutrophils Absolute Auto 4.5 x10*3/uL (2.0-8.3); Neutrophils Percent Auto 65.7 % (45-73); Platelet Count 307 X10*3/uL (160-400); Red Blood Count 4.52 X10*6/uL (4.60-5.80); Red Cell Distribution Width 13.2 % (11.0-16.0); White Blood Count 6.8 X10*3/uL (4.8-10.8)
[2023-03-18 01:57] LABS: Alanine Aminotransferase 65 U/L (0-40); Albumin Level 4.2 g/dL (3.5-5.0); Alkaline Phosphatase 121 U/L (39-117); Anion Gap 16 (12-20); Aspartate Amino Transferase 26 U/L (5-37); Bilirubin Direct 0.1 mg/dL (0.0-0.5); Bilirubin Total 0.4 mg/dL (0.0-1.0); Blood Urea Nitrogen 17 mg/dL (9-16); Calcium 9.6 mg/dL (8.4-10.2); Carbon Dioxide 21 mmol/L (22-29); Chloride 108 mmol/L (96-108); Creatinine Clr Calc Pharmacy 118.9; Estimated Glomerular Filt Rate > 60; Ethanol 90 mg/dL; Glucose Random 85 mg/dL (60-115); Magnesium 2.1 mg/dL (1.6-2.6); Potassium 3.8 mmol/L (3.3-5.1); Sodium 141 mmol/L (135-145); Total Protein 7.3 g/dL (6.5-8.0)
--- NOTE | 2023-03-18 01:57 | PC.NURSE ---
pt arrived via ems under sec 12; see triage note. bleeding controlled on ambulance via ems however upon arrival started bleeding thru dressing. Dr. Carmona and [employer] HOTBED LEVER OPERATOR to bedside. use of tourniquet to control bleeding at 5-[address] Carmona and [employer] HOTBED LEVER OPERATOR suture laceration. dressing applied to L. Forearm upon completing sutures by [facility] K[facility]. +circulation cap refill < 2 seconds. +ROM. pt denies numbness/pain/tingling. pt reports daily use of alcohol approx 1 liter; hx of withdrawal sx tremors & seizures. seizure precautions in place. ciwa [address] Carmona aware; to order ativan. pt reports using cocaine/fetanyl/heroin; recent d/c from detox. pt axox4 at this time denies dizziness. labs drawn uds sent to lab. pt changed over by security belongings in . 1:1 sitter at bedside. pt calm/cooperative at this time. awaiting care team eval.
[2023-03-18 02:09] LABS: COVID-19 Test Negative (Negative); IDNOW Serial# 6674DD1D
[2023-03-18] MEDS: LORazepam 1 MG TABLET 2 MG PO ×4 (02:10→16:49)
[2023-03-18 02:22] LABS: Amphetamine Screen Urine Not Detected (Not Detect); Barbiturates, Urine Not Detected (Not Detect); Benzodiazepines Screen Urine POSITIVE (Not Detect); Cannabinoid Screen Urine POSITIVE (Not Detect); Cocaine Screen Urine POSITIVE (Not Detect); Fentanyl, urine POSITIVE (Not Detect); Opiate Screen Urine Not Detected (Not Detect); Phencyclidine Screen Urine Not Detected (Not Detect)
--- NOTE | 2023-03-18 04:00 | PC.NURSE ---
pt sleeping in stretcher resp even and unlabored. sitter at bedside.
[2023-03-18] MEDS: Acetaminophen 325 MG TABLET 650 MG PO (05:11)
[2023-03-18] MEDS: Ibuprofen 600 MG TABLET PO (05:11)
[2023-03-18 05:41] LABS: Hematocrit 33.6 % (42.0-52.0); Hemoglobin 11.5 g/dl (14.0-18.0); Mean Corpuscular HGB Conc 34.2 g/dl (31.0-36.0); Mean Corpuscular Hemoglobin 27.8 pg (27.0-33.0); Mean Corpuscular Volume 81.2 fL (80.0-98.0); Mean Platelet Volume 8.9 fL (9.4-12.4); Platelet Count 272 X10*3/uL (160-400); Red Blood Count 4.14 X10*6/uL (4.60-5.80); Red Cell Distribution Width 13.5 % (11.0-16.0); White Blood Count 6.6 X10*3/uL (4.8-10.8)
--- NOTE | 2023-03-18 07:20 | PC.NURSE ---
Addendum entered by Tanisha Britton 03/18/23 07:35: awake, eating breakfast, offering no other complaints. Original Note: patient appears to be resting quietly in room at this time, respirations even and unlabored. patient observer remains at bedside.
--- NOTE | 2023-03-18 10:04 | PC.NURSE ---
patient requested ativan for anxiety this morning. patient now sleeping in room with even and unlabored respirations. CIWA of 4, no other signs/symptoms of distress noted at this time. call from behavioral health admissions requesting a UA and ekg - both ordered at this time.
--- NOTE | 2023-03-18 12:25 | PC.NURSE ---
plan for inpatient psych admission. visitor at bedside, patient appears to be sleeping with even and unlabored respirations.
--- NOTE | 2023-03-18 13:06 | PHA.MEDREC ---
Pharmacy Consult ? Medication Reconciliation Pharmacy has completed the medication reconciliation with the patient, stated that he has no daily prescriptions/medications and nothing OTC either.
--- NOTE | 2023-03-18 13:31 | PC.NURSE ---
pt transitioned from main ER to pod at this time. resting in room, eating crackers/po fluids. no distress. wound c/d/i, open to air, no bleeding/drainage/redness. denies si or hx si/si attempts. no hi. calm, cooperative.
[2023-03-18 13:41] LABS: Appearance Urine Cloudy; Color Urine Dark Yellow; Glucose Urine UA Negative (Negative); Leukocyte Esterase Urine Negative (Negative); Nitrite Urine Negative (Negative); PH 5.5 (5.0-9.0); Specific Gravity - Urine >= 1.030 (1.005-1.025); Urine Blood Negative (Negative); Urine Ketones Negative (Negative); Urine Protein Trace mg/dL (Neg-Trace)
--- NOTE | 2023-03-18 13:45 | PC.NURSE ---
md negrete notified [facility] 11- giving ativan per order.
[2023-03-18 13:50] LABS: Bacteria Urine None Seen (None Seen); Calcium Oxalate Crystals Urine Present; RBC Urine 0-2 /HPF (0-2); Squamous Epithelial Cell Urine 0-2 /HPF (0-2); WBC Urine 0-5 /HPF (0-5)
--- NOTE | 2023-03-18 14:30 | PC.NURSE ---
pt states he is not on any home meds. med rec complete
--- NOTE | 2023-03-18 15:17 | PC.NURSE ---
pt reports the ativan helped him and CIWA now 0. on pod phone in room. resting.
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
[2023-03-18] MEDS: traZODone HCL 50 MG TABLET PO (21:08)
[2023-03-18] MEDS: Thiamine HCL 100 MG TABLET PO (21:08)
[2023-03-18] MEDS: cloNIDine HCL 0.1 MG TABLET PO (21:09)
[2023-03-18] MEDS: Baclofen 10 MG TABLET 5 MG PO (21:22)
[2023-03-18] MEDS: LORazepam 1 MG TABLET PO (21:42)
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
[2023-03-19] MEDS: Thiamine HCL 100 MG TABLET PO (09:20)
[2023-03-19] MEDS: LORazepam 1 MG TABLET 2 MG PO ×2 (09:20→18:03)
[2023-03-19 09:54] VITALS: BP 148/64; PULSE 89; RESP 18; TEMP 37.1; O2SAT 98
[2023-03-19 10:14] LABS: Estimated Average Glucose 117 mg/dL; Hemoglobin A1c % 5.7 % (<6.0)
[2023-03-19 10:31] LABS: Alanine Aminotransferase 48 U/L (0-40); Albumin Level 4.3 g/dL (3.5-5.0); Alkaline Phosphatase 118 U/L (39-117); Anion Gap 12 (12-20); Aspartate Amino Transferase 21 U/L (5-37); Bilirubin Total 0.5 mg/dL (0.0-1.0); Blood Urea Nitrogen 12 mg/dL (9-16); Carbon Dioxide 27 mmol/L (22-29); Chloride 105 mmol/L (96-108); Cholesterol 208 mg/dL (<200); Creatinine Clr Calc Pharmacy 121.4; Estimated Glomerular Filt Rate > 60; Glucose Fasting 111 mg/dL (60-99); HDL Cholesterol 54 mg/dL (>40); LDL Cholesterol Calculated 129 mg/dL (<100); Potassium 3.7 mmol/L (3.3-5.1); Sodium 140 mmol/L (135-145); Total Protein 7.7 g/dL (6.5-8.0); Triglycerides 129 mg/dL (<150)
[2023-03-19 10:48] LABS: Thyroid Stimulating Hormone 0.25 uIU/mL (0.32-4.0)
[2023-03-19 10:50] LABS: Vitamin B12 768 pg/mL (200-900)
--- NOTE | 2023-03-19 11:00 | P.HPPS_ITS ---
HPI Date of Service: 03/19/23 Chief Complaint: si Sources of Information: patient interviewed, chart reviewed and crisis/core team assessment reviewed HPI Subjective Notes: Wilkins Warning, Conditional Voluntary and 3 Day (03/18) Healthcare Proxy: No Guardianship: No Medical Problems Affecting Mental Status: No Narrative: 37 yo male presented via EMS called by partner after a cut to the L forearm with broken glass while doing dishes. Partner reports pt made suicidal statement regarding jumping from a local bridge. Toxicology is positive for alcohol-90, fentanyl, benzodiazepines, cocaine, cannabis. Pt required tourniquets and sutures for cuts. Pt reports the cut was an accident. He denies SI/HI/ AH/VH. Pt reports 3 years of sobriety with relapse 6 months ago. Pt is happy to meet with addictions team to discuss Methadone. He has had the best success he reports with [facility]. He has signed a three day notice and asks to leave berenice as he has no intent of self harm and assures team this was an accidential incident. Team reports pt's partner attempted to bring in a syringe of heroin to the ER which they intercepted prior to injection. Discussed precipitants to admission. I was angry as hell with her-we were fighting over doing dishes . Pt reports he is attempting to admit to [facility] [place], has interest in Methadone, but asks to discharge as this was an accident not a suicide attempt Past Psychiatric History: IP: Denies OP: Denies Detox/Rehab: 6 interventions Trials: Denies Medical Evaluation Reviewed: Yes FORMERLY [facility], [facility] Medical History (Updated 03/19/23 @ 18:07 by Natasha Evans, JEREMÍAS) Alcohol use disorder Polysubstance abuse Family History: Denies Social History: Born, raised in [place] by both parents. Reports one brother, one sister Works in [employer] Current relationship with his partner ~18 month Legal Hx- Arrest for substance possession Substance History: Substance use since teens-alcohol, opiates, cocaine, cannabis Trauma History: Denies Diagnostics Vital Signs (24Hr): Vital Signs - 24 hr 03/18/23 13:45 03/18/23 16:43 03/18/23 21:00 Temperature 98.1 F 97.8 F 97.2 F Pulse Rate 88 80 95 Respiratory Rate 16 16 Blood Pressure 112/68 117/68 122/60 Pulse Oximetry 95 98 Oxygen Delivery Method Room Air Room Air 03/19/23 09:54 Temperature 98.8 F Pulse Rate 89 Respiratory Rate 18 Blood Pressure 148/64 H Pulse Oximetry 98 Oxygen Delivery Method Room Air BMI result Body Mass Index 27.9 Labs 03/18/23 05:37 03/19/23 09:08 Labs: Laboratory Results - last 48 hr 03/18/23 03/18/23 03/18/23 01:37 01:50 05:37 WBC 6.8 6.6 RBC 4.52 L 4.14 L Hgb 12.6 L 11.5 L Hct 36.4 L 33.6 L MCV 80.5 81.2 MCH 27.9 27.8 MCHC 34.6 34.2 RDW 13.2 13.5 Plt Count 307 272 MPV 8.8 L 8.9 L Immature Gran % (Auto) 0.3 Neut % (Auto) 65.7 Lymph % (Auto) 25.4 [place] % (Auto) 5.8 Eos % (Auto) 1.8 Baso % (Auto) 1.0 Lymph # (Auto) 1.7 [place] # (Auto) 0.4 Eos # (Auto) 0.1 Baso # (Auto) 0.1 Abs Immat Gran (auto) 0.02 Absolute Neuts (auto) 4.5 Absolute Nucleated RBC 0.000 0.000 Nucleated RBC % (auto) 0.0 0.0 Sodium 141 Potassium 3.8 Chloride 108 Carbon Dioxide 21 L Anion Gap 16 BUN 17 H Creatinine 0.97 Estim Creat Clear Calc 118.9 Estimated GFR > 60 Random Glucose 85 Fasting Glucose Estimat Average Glucose Hemoglobin A1c % Calcium 9.6 Magnesium 2.1 Total Bilirubin 0.4 Direct Bilirubin 0.1 AST 26 ALT 65 H Alkaline Phosphatase 121 H Total Protein 7.3 Albumin 4.2 Triglycerides Cholesterol LDL Cholesterol, Calc HDL Cholesterol Vitamin B12 TSH Urine Color Urine Appearance Urine pH Ur Specific [place] Urine Protein Urine Glucose (UA) Urine Ketones Urine Blood Urine Nitrite Ur Leukocyte Esterase Urine RBC Urine WBC Ur Squamous Epith Cells Calcium Oxalate Crystal Urine Bacteria Hyaline Casts Urine Opiates Screen Not Detected Urine Fentanyl Screen POSITIVE H Ur Barbiturates Screen Not Detected Ur Phencyclidine Scrn Not Detected Ur Amphetamines Screen Not Detected U Benzodiazepines Scrn POSITIVE H Urine Cocaine Screen POSITIVE H U Marijuana (THC) Screen POSITIVE H Ethyl Alcohol 90 COVID-19 (NELY) Negative COVID-19 Clin Com See Note 03/18/23 03/19/23 13:30 09:08 WBC RBC Hgb Hct MCV MCH MCHC RDW Plt Count MPV Immature Gran % (Auto) Neut % (Auto) Lymph % (Auto) [place] % (Auto) Eos % (Auto) Baso % (Auto) Lymph # (Auto) [place] # (Auto) Eos # (Auto) Baso # (Auto) Abs Immat Gran (auto) Absolute Neuts (auto) Absolute Nucleated RBC Nucleated RBC % (auto) Sodium 140 Potassium 3.7 Chloride 105 Carbon Dioxide 27 Anion Gap 12 BUN 12 Creatinine 0.95 Estim Creat Clear Calc 121.4 Estimated GFR > 60 Random Glucose Fasting Glucose 111 H Estimat Average Glucose 117 Hemoglobin A1c % 5.7 Calcium 10.0 Magnesium Total Bilirubin 0.5 Direct Bilirubin AST 21 ALT 48 H Alkaline Phosphatase 118 H Total Protein 7.7 Albumin 4.3 Triglycerides 129 Cholesterol 208 H LDL Cholesterol, Calc 129 H HDL Cholesterol 54 Vitamin B12 768 TSH 0.25 L Urine Color Dark Yellow Urine Appearance Cloudy Urine pH 5.5 Ur Specific [place] >= 1.030 H Urine Protein Trace Urine Glucose (UA) Negative Urine Ketones Negative Urine Blood Negative Urine Nitrite Negative Ur Leukocyte Esterase Negative Urine RBC 0-2 Urine WBC 0-5 Ur Squamous Epith Cells 0-2 Calcium Oxalate Crystal Present Urine Bacteria None Seen Hyaline Casts 6-10 Urine Opiates Screen Urine Fentanyl Screen Ur Barbiturates Screen Ur Phencyclidine Scrn Ur Amphetamines Screen U Benzodiazepines Scrn Urine Cocaine Screen U Marijuana (THC) Screen Ethyl Alcohol COVID-19 (NELY) COVID-19 Clin Com Meds/Allergies Meds Home Medications Medication Instructions Recorded Confirmed Type No Known Home Meds 03/18/23 03/18/23 History Allergies Allergies Allergy/AdvReac Type Severity Reaction Status Date / Time No Known Allergies Allergy Verified 01/10/23 12:51 Mental Status Exam Mental Status Exam Patient Appearance: Appropriate Patient Orientation: Person, Place, Time and Situation Level of Consciousness: Alert Patient Behavior: Appropriate, Talkative and Cooperative Mood Description: Appropriate Affect Description: Appropriate Patient Cognition Impaired: No Ability to Follow Directions: Good Speech Pattern: Spontaneous Speech Memory Description: Intact Hallucinations: None Delusions: Not Present Thought Process: Intact and Goal Oriented Thought Content: positive for Intact, positive for Goal Oriented, positive for Suicidal Ideation (denies) and positive for Homicidal Ideation (denies) Abnormal Motor Activity Signs and Symptoms: Restlessness Judgement: Fair Assessment & Plan Assessment & Plan (1) Alcohol use disorder: Status: Acute Code(s): F10.90 - Alcohol use, unspecified, uncomplicated (2) Polysubstance use disorder: Status: Inactive Code(s): F19.90 - Other psychoactive substance use, unspecified, uncomplicated (3) Laceration of artery: Status: Acute Code(s): T14.8XXA - Other injury of unspecified body region, initial encounter (4) Forearm laceration: Status: Acute Qualifiers: Encounter type: initial encounter Laterality: left Qualified Code(s): S51.812A - Laceration without foreign body of left forearm, initial encounter Code(s): S51.819A - Laceration without foreign body of unspecified forearm, initial encounter (5) ABLA (acute blood loss anemia): Status: Acute Code(s): D62 - Acute posthemorrhagic anemia Plan 37 yo male, s/p forearm laceration with glass with artery involvement. Toxicology positive for fentanyl, alcohol, benzodiazepines, cocaine, cannabis. Pt denies this as a suicide attempt, reports he was angry with partner, they were fighting and this was an accident. Pt 's partner disagreed upon admission, but reportedly brought in a syringe of heroin for pt which was intercepted by the team. Pt signed a 3 day notice of intent. He reports he is looking into attending [facility] [place] as he was sober for 3 years and is wanting to return to this. He is willing to see addiction medicine and asks about Methadone. Plan: Collateral Contact Addiction consult Three day notice-continue to evaluate. Patient educated on: therapeutic strategies Informed Consent: understands and further education needed Reason for continued inpatient stay Substantial Risk for: med/psych decompensation Statement Statement: I have reviewed the history and physical and performed a pertinent examination on my patient. No changes have occurred unless specified. If the History and Physical was not performed prior to admission, the Hospitalist's service will be consulted for completing the admission physical. Time Spent With Patient Time: Total time managing care of this patient today ____ minutes.
--- NOTE | 2023-03-19 12:03 | MHC.CLN ---
NUTRITION CONSULT FOR 30# WEIGHT LOSS X 3 MONTHS. REVIEW OF WEIGHT HX SHOWS 11/05/22 WEIGHT=95.254 KG. SHOWS 10#, -4,8% WEIGHT LOSS X 3 MONTHS. WEIGHT LOSS NOT SIGNIFICANT. NO ADDITIONAL NUTRITION INTERVENTIONS AT THIS TIME.
[2023-03-19] MEDS: Loperamide HCl 2 MG CAPSULE PO (13:05)
[2023-03-19] MEDS: LORazepam 1 MG TABLET PO (13:05)
--- NOTE | 2023-03-19 14:16 | MHC.RECOVRN ---
Met with pt after consult placed to Addiction Medicine for methadone initiation. Pt had presented to the ED via EMS from home on a [address]. Pt had cut left forearm with broken glass and was making threats to jump off bridge per [facility]. Upon evaluation, pt admitted to [facility]. Pt laying in bed, eyes closed, easily wakes to voice and engages in conversation, pleasant, smiling. Pt appears restless, does not appear to be uncomfortable otherwise. Pt reports 3 years in recovery up until 6 months ago when he and his girlfriend (who had 12 years in recovery) used cocaine. From there, use escalated and pt is now using heroin/fentanyl, 4 bundles daily, IV, as well as cocaine, up to 5 grams daily, IV and INH. Last use [employer]. Pt reports hx methadone, a ton of different times with doses up to 140 mg. Pt is interested in methadone initiation and OTP linkage. Pt reports current withdrawal symptoms including nausea/vomiting, diaphoresis, body aches, and hot/cold flashes. Pt denies other questions or concerns for t/w. Discussed with Juli Mcdonald APRN.
[2023-03-19] MEDS: methADONE HCl 20 MG/2 ML ORAL.CONC 30 MG PO (15:14)
[2023-03-19] MEDS: Acetaminophen 325 MG TABLET 650 MG PO (20:25)
[2023-03-19] MEDS: traZODone HCL 50 MG TABLET PO (20:27)
[2023-03-19] MEDS: hydrOXYzine HCL 25 MG TABLET PO (20:27)
[2023-03-19] MEDS: cloNIDine HCL 0.1 MG TABLET PO (20:29)
[2023-03-19 20:30] VITALS: BP 118/66; PULSE 98; TEMP 37.2
[2023-03-19] MEDS: Baclofen 10 MG TABLET 5 MG PO (20:30)
[2023-03-20 07:00] VITALS: BMI 25.5
[2023-03-20] MEDS: Thiamine HCL 100 MG TABLET PO (08:14)
[2023-03-20] MEDS: methADONE HCl 20 MG/2 ML ORAL.CONC 40 MG PO (08:14)
[2023-03-20] MEDS: LORazepam 1 MG TABLET PO (08:25)
[2023-03-20 09:25] VITALS: BP 124/76; PULSE 126; RESP 18; TEMP 36.8; O2SAT 100
--- NOTE | 2023-03-20 15:06 | PM.PSYDC ---
DS: Providers Provider Date of Service: 03/20/23 Date of admission: 03/18/23 18:50 Date of discharge: 03/20/23 Primary care physician: None Physician Admitting clinician: Natasha Evans Attending physician on admission: Milton Meza Consults: 03/18/23 01:17 Consult to Care Team Stat Comment: Reason for consultation: reported SI per he denies this - had laceration with arterial bleed 03/19/23 12:02 Addiction Medicine Routine Consulting Provider: Addiction Covering Reason for consultation: Pt would like to discuss methadone initiation Has provider been notified: No Attending physician on discharge: Milton Meza Discharging clinician: Natasha Evans DS: Diagnosis Discharge Diagnosis (1) Alcohol use disorder: Status: Acute (2) Polysubstance use disorder: Status: Inactive (3) Laceration of artery: Status: Acute (4) Forearm laceration: Status: Acute (5) ABLA (acute blood loss anemia): Status: Resolved DS: Medications Discharge Medications Home Medications: Home Medications Medication Instructions Recorded Confirmed No Known Home Meds 03/18/23 03/18/23 Mental Status Exam Mental Status Exam Patient Appearance: Appropriate Patient Orientation: Person, Place, Time and Situation Level of Consciousness: Alert Patient Behavior: Appropriate, Talkative and Cooperative Mood Description: Appropriate Affect Description: Appropriate Patient Cognition Impaired: No Ability to Follow Directions: Good Speech Pattern: Spontaneous Speech Memory Description: Intact Hallucinations: None Delusions: Not Present Thought Process: Intact and Goal Oriented Thought Content: positive for Intact, positive for Goal Oriented, positive for Suicidal Ideation (denies) and positive for Homicidal Ideation (denies) Abnormal Motor Activity Signs and Symptoms: Restlessness Judgement: Fair Data Data Completed and Pending Completed studies during hospitalization [Text1]: 03/18/23 03/18/23 03/18/23 01:37 01:50 05:37 WBC 6.8 6.6 RBC 4.52 L 4.14 L Hgb 12.6 L 11.5 L Hct 36.4 L 33.6 L MCV 80.5 81.2 MCH 27.9 27.8 MCHC 34.6 34.2 RDW 13.2 13.5 Plt Count 307 272 MPV 8.8 L 8.9 L Immature Gran % (Auto) 0.3 Neut % (Auto) 65.7 Lymph % (Auto) 25.4 [place] % (Auto) 5.8 Eos % (Auto) 1.8 Baso % (Auto) 1.0 Lymph # (Auto) 1.7 [place] # (Auto) 0.4 Eos # (Auto) 0.1 Baso # (Auto) 0.1 Abs Immat Gran (auto) 0.02 Absolute Neuts (auto) 4.5 Absolute Nucleated RBC 0.000 0.000 Nucleated RBC % (auto) 0.0 0.0 Sodium 141 Potassium 3.8 Chloride 108 Carbon Dioxide 21 L Anion Gap 16 BUN 17 H Creatinine 0.97 Estim Creat Clear Calc 118.9 Estimated GFR > 60 Random Glucose 85 Fasting Glucose Estimat Average Glucose Hemoglobin A1c % Calcium 9.6 Magnesium 2.1 Total Bilirubin 0.4 Direct Bilirubin 0.1 AST 26 ALT 65 H Alkaline Phosphatase 121 H Total Protein 7.3 Albumin 4.2 Triglycerides Cholesterol LDL Cholesterol, Calc HDL Cholesterol Vitamin B12 TSH Urine Color Urine Appearance Urine pH Ur Specific [place] Urine Protein Urine Glucose (UA) Urine Ketones Urine Blood Urine Nitrite Ur Leukocyte Esterase Urine RBC Urine WBC Ur Squamous Epith Cells Calcium Oxalate Crystal Urine Bacteria Hyaline Casts Urine Opiates Screen Not Detected Urine Fentanyl Screen POSITIVE H Ur Barbiturates Screen Not Detected Ur Phencyclidine Scrn Not Detected Ur Amphetamines Screen Not Detected U Benzodiazepines Scrn POSITIVE H Urine Cocaine Screen POSITIVE H U Marijuana (THC) Screen POSITIVE H Ethyl Alcohol 90 COVID-19 (NELY) Negative COVID-19 Clin Com See Note 03/18/23 03/19/23 13:30 09:08 WBC RBC Hgb Hct MCV MCH MCHC RDW Plt Count MPV Immature Gran % (Auto) Neut % (Auto) Lymph % (Auto) [place] % (Auto) Eos % (Auto) Baso % (Auto) Lymph # (Auto) [place] # (Auto) Eos # (Auto) Baso # (Auto) Abs Immat Gran (auto) Absolute Neuts (auto) Absolute Nucleated RBC Nucleated RBC % (auto) Sodium 140 Potassium 3.7 Chloride 105 Carbon Dioxide 27 Anion Gap 12 BUN 12 Creatinine 0.95 Estim Creat Clear Calc 121.4 Estimated GFR > 60 Random Glucose Fasting Glucose 111 H Estimat Average Glucose 117 Hemoglobin A1c % 5.7 Calcium 10.0 Magnesium Total Bilirubin 0.5 Direct Bilirubin AST 21 ALT 48 H Alkaline Phosphatase 118 H Total Protein 7.7 Albumin 4.3 Triglycerides 129 Cholesterol 208 H LDL Cholesterol, Calc 129 H HDL Cholesterol 54 Vitamin B12 768 TSH 0.25 L Urine Color Dark Yellow Urine Appearance Cloudy Urine pH 5.5 Ur Specific [place] >= 1.030 H Urine Protein Trace Urine Glucose (UA) Negative Urine Ketones Negative Urine Blood Negative Urine Nitrite Negative Ur Leukocyte Esterase Negative Urine RBC 0-2 Urine WBC 0-5 Ur Squamous Epith Cells 0-2 Calcium Oxalate Crystal Present Urine Bacteria None Seen Hyaline Casts 6-10 Urine Opiates Screen Urine Fentanyl Screen Ur Barbiturates Screen Ur Phencyclidine Scrn Ur Amphetamines Screen U Benzodiazepines Scrn Urine Cocaine Screen U Marijuana (THC) Screen Ethyl Alcohol COVID-19 (NELY) COVID-19 Clin Com DS: Summary Hospital Course Hospital Course: Admission to adult psychiatry after accidentially cutting his forearm while doing dishes on broken glass. An artery was cut during this accident. Reports he was having an argument with his partner during this time. She reported to team this was a suicide attempt. Pt denies this, acknowledges the argument and reports a history of polysubstance use. He is not interested in any type of treatment at this time, does not believe there is a problem and denies psychiatric sx. Toxicology positive for benzodiazepines, cocaine, fentanyl and cannabis. Pt signed a three day notice of intent on admission and continued to deny symptoms and decline further treatment, medications, referrals. He was welcomed to return at any time should he believe treatment would be of assistance. Status at Discharge Functional status at discharge: independent ambulation Overall status at discharge: patient is back to baseline Time Spent with Patient Time attestation: Total time managing care of this patient today ____ minutes. Time spent: Greater than 30 minutes Discharge Plan Discharge Anticipated Discharge Date/Time: 03/20/23 12:00 Patient Disposition: Home, Self-Care Discharge Diagnosis: Alcohol Use Disorder Polysubstance Use Disorder-Fentanyl, Benzodiazepines, Cocaine, Cannabis positive on toxicology Mixed Adjustment Reaction with disturbance of emotions/conduct Laceration of arm, involving an artery-accidential not intentional per pt report. Referrals: Physician,None [Primary Care Provider] - (patient refused) Discharge Medications: No Action No Known Home Meds Discharge Orders: Discharge Order (Routine); Ordered 03/20/23 Ordered By: Natasha Evans Diet: Advance to usual diet Activity on Discharge: As tolerated Stand Alone Forms: Patient Portal Discharge page, Community Support Care Plan Goals: Work on Sobriety Health Concerns: Sobriety Plan of Treatment: Pt declines treatment at this time Follow up with primary care within the week to continue care of forearm laceration/suture monitoring. Assessment: Three day notice of intent. Pt declines treatment at this time. He denies SI, HI. There is no evidence of sx of psychosis or bárbara Laceration of arm was accidential during an argument with his partner he reports. Patient Instructions: Laceration (ED) Discharge Date/Time: 03/20/23 10:30
== END 2023-03-20 10:30 | disposition home or self-care (01) | DRG 755 ==
LOC: HO.ED 13:28 → HO.PM5 19:09
PROVIDERS: Admitting Provider Social Worker; Emergency Provider Emergency Medicine; Visit Provider Clinical Nurse Specialist Psychiatric/Mental Health, Adult
DX: F43.25 Adjustment disorder with mixed disturbance of emotions and conduct (principal); D62 Acute posthemorrhagic anemia; F19.10 Other psychoactive substance abuse, uncomplicated; S41.112A Laceration without foreign body of left upper arm, initial encounter; F17.210 Nicotine dependence, cigarettes, uncomplicated; W45.8XXA Other foreign body or object entering through skin, initial encounter; F10.90 Alcohol use, unspecified, uncomplicated; Z71.6 Tobacco abuse counseling; Y90.4 Blood alcohol level of 80-99 mg/100 ml; Z20.822 Contact with and (suspected) exposure to COVID-19
CPT/HCPCS: 36415; 80048; 80053; 80061; 80076; 80307; 81001; 82607; 83036; 83735; 84443; 85025; 85027; 87635; 93005; 99285; S9485

== ENCOUNTER → 2023-03-18 12:08 | Outpatient (BNV) | payer MEDICAID, SELFPAY | PROVIDERS: Emergency Provider Emergency Medicine; Visit Provider Internal Medicine Cardiovascular Disease | DX: R94.31 Abnormal electrocardiogram [ECG] [EKG] (principal) | CPT/HCPCS: 93010 ==

== ENCOUNTER → 2023-03-18 18:50 | Outpatient (BNV) | payer MEDICAID, SELFPAY | PROVIDERS: Admitting Provider Social Worker; Emergency Provider Emergency Medicine; Visit Provider Clinical Nurse Specialist Psychiatric/Mental Health, Adult | DX: F10.90 Alcohol use, unspecified, uncomplicated (principal); F19.90 Other psychoactive substance use, unspecified, uncomplicated; T14.8XXA Other injury of unspecified body region, initial encounter; S51.812A Laceration without foreign body of left forearm, initial encounter; D62 Acute posthemorrhagic anemia | CPT/HCPCS: 99222; 99238 ==